=== PATIENT | female | born 1950 | race Caucasian/White ===

== ENCOUNTER 2020-05-01 12:13 | Inpatient (IN) ==
[2020-05-01] MEDS ORDERED: PNEUMOCOCCAL VACCINE (13 VALENT) 0.5 ML SYRINGE IM ONE (17:14)
[2020-05-01] MEDS ORDERED: ONDANSETRON 4 MG/2 ML VIAL IV PRN (17:24)
[2020-05-01] MEDS ORDERED: HYDROmorphone 2 MG/1 ML VIAL IV PRN (17:24)
[2020-05-01] MEDS ORDERED: ACETAMINOPHEN 325 MG TABLET PO PRN (17:24)
[2020-05-01] MEDS: DEXTROSE 5% LACTATED RINGERS 1,000 ML IV SCH (18:05)
[2020-05-01] MEDS: PIPERACILLIN/TAZOBACTAM 3,375 MG in SODIUM CHLORIDE 0.9% 100 ML IV SCH (21:29)
[2020-05-02] MEDS: DEXTROSE 5% LACTATED RINGERS 1,000 ML IV SCH ×3 (00:50→23:35)
[2020-05-02] MEDS: PIPERACILLIN/TAZOBACTAM 3,375 MG in SODIUM CHLORIDE 0.9% 100 ML IV SCH ×3 (04:54→21:12)
[2020-05-02 05:37] LABS: Basophils # 0.1 10*3/uL (0.0-0.2); Basophils % 0.6 % (0.0-0.8); Eosinophils # 0.1 10*3/uL (0.0-0.87); Eosinophils % 1.3 % (0.00-10.9); Hematocrit 34.1 VOL% (35.7-47.0); Hemoglobin 11.2 GM/DL (12.0-16.0); Immature Granulocytes % 0.4 %; Immature Granulocytes Absolute 0.04 #; Lymphocytes # 1.8 10*3/uL (1.4-4.0); Lymphocytes % 18.1 % (21.3-54.2); Mean Corpuscular HGB Conc 32.8 GM/DL (32-36); Mean Corpuscular Volume 91.2 FL (87-102); Mean Platelet Volume 9.3 FL (9.6-12.0); Monocytes % 6.5 % (1.7-12.7); Neutrophils % 73.1 % (38.7-73.9); Platelet Count 420 T/CUMM (130-400); Red Blood Count 3.74 MC/CUMM (3.8-5.5); Red Cell Distribution Width 15.6 % (9.3-17.3)
[2020-05-02 05:58] LABS: Bilirubin,Total 1.1 MG/DL (0.2-1.0); Calcium 8.4 MG/DL (8.5-10.1); Osmolality,Calculated 275.5 MOS/KG (273-304); Total Protein 6.2 G/DL (6.4-8.3)
[2020-05-02] MEDS: POTASSIUM CHLORIDE RIDER 10 MEQ in PREMIX 1 EACH IV PRN ×7 (07:07→23:30)
[2020-05-02] MEDS: LEVOTHYROXINE 88 MCG TABLET PO SCH (07:07)
[2020-05-02] MEDS ORDERED: INDOMETHACIN SUPP 50 MG SUPP RECTAL ONE (08:41)
[2020-05-02] MEDS: PANTOPRAZOLE 40 MG TABLET PO SCH (08:52)
[2020-05-02 09:31] LABS: INR 1.1; PT Patient Result 11.4 SECS (9.8-11.9)
[2020-05-02] MEDS: LACTATED RINGERS 1,000 ML IV SCH (12:36)
[2020-05-02] MEDS ORDERED: SUCCINYLCHOLINE 200 MG/10 ML VIAL ONE (12:45)
[2020-05-02] MEDS ORDERED: propofoL 200 MG/20 ML VIAL IV ONE (12:45)
[2020-05-02] MEDS ORDERED: ROCURONIUM 50 MG/5 ML VIAL IV ONE (12:45)
[2020-05-02] MEDS ORDERED: LIDOCAINE 2% 5 ML VIAL ONE (12:45)
[2020-05-02] MEDS ORDERED: fentaNYL 100 MCG/2 ML VIAL ONE ×2 (12:45→13:26)
[2020-05-02] MEDS ORDERED: ONDANSETRON 4 MG/2 ML VIAL ONE (12:45)
[2020-05-02] MEDS ORDERED: PHENYLEPHRINE 1 MG/10 ML SYRINGE IV ONE (13:13)
[2020-05-02] MEDS ORDERED: GLYCOPYRROLATE 0.4 MG/2 ML VIAL ONE (13:13)
[2020-05-02] MEDS ORDERED: ePHEDrine 50 MG/ML VIAL ONE (14:11)
[2020-05-02] MEDS ORDERED: GLUCAGON 1 MG VIAL ONE (14:54)
[2020-05-02 15:54] LABS: Bilirubin,Urine Negative (Negative); Blood, Urine Negative (Negative); Glucose,Urine (UA) 50 mg/dL (Negative); Hyaline Casts,Urine 1 /LPF (0-3); Ketones,Urine 5 mg/dL (Negative); Mucus,Urine Occasional /LPF (Occasional); Nitrite,Urine Negative (Negative); Protein,Urine Negative; Squamous Epithelial Cell,Urine Occasional /HPF (0-10); Urine Appearance CLEAR (Clear); Urine Color Yellow (Yellow); Urine Urobilinogen < 2.0 EU/DL (0.2-1.0)
[2020-05-02] MEDS ORDERED: ENOXAPARIN 30 MG/0.3 ML SYRINGE SUBCUT ONE (20:00)
[2020-05-02 20:15] LABS: Troponin I 0.138 NG/ML (0.00-0.045)
[2020-05-02] MEDS: CLOPIDOGREL 75 MG TABLET PO SCH (20:44)
[2020-05-03] MEDS: POTASSIUM CHLORIDE RIDER 10 MEQ in PREMIX 1 EACH IV PRN ×5 (00:40→08:28)
[2020-05-03] MEDS: DEXTROSE 5% LACTATED RINGERS 1,000 ML IV SCH ×4 (01:48→19:35)
[2020-05-03 04:39] LABS: Basophils % 0.1 % (0.0-0.8); Eosinophils % 0.1 % (0.00-10.9); Hematocrit 38.9 VOL% (35.7-47.0); Hemoglobin 12.6 GM/DL (12.0-16.0); Immature Granulocytes % 0.4 %; Immature Granulocytes Absolute 0.07 #; Lymphocytes # 1.8 10*3/uL (1.4-4.0); Mean Corpuscular HGB Conc 32.4 GM/DL (32-36); Mean Corpuscular Volume 91.1 FL (87-102); Monocytes % 3.9 % (1.7-12.7); Neutrophils % 84.5 % (38.7-73.9); Platelet Count 462 T/CUMM (130-400); Red Blood Count 4.27 MC/CUMM (3.8-5.5); Red Cell Distribution Width 15.4 % (9.3-17.3); White Blood Count 16.2 T/CUMM (4-12)
[2020-05-03 05:12] LABS: Albumin 2.2 G/DL (3.4-5.0); Calcium 8.5 MG/DL (8.5-10.1); Osmolality,Calculated 273.7 MOS/KG (273-304); Total Protein 6.7 G/DL (6.4-8.3)
[2020-05-03 05:17] LABS: Troponin I 0.058 NG/ML (0.00-0.045)
[2020-05-03] MEDS: PIPERACILLIN/TAZOBACTAM 3,375 MG in SODIUM CHLORIDE 0.9% 100 ML IV SCH ×3 (05:32→21:53)
[2020-05-03] MEDS: LEVOTHYROXINE 88 MCG TABLET PO SCH (05:35)
[2020-05-03] MEDS: PANTOPRAZOLE 40 MG TABLET PO SCH (08:03)
[2020-05-03] MEDS: ENOXAPARIN 30 MG/0.3 ML SYRINGE SUBCUT SCH (08:03)
[2020-05-03] MEDS: CLOPIDOGREL 75 MG TABLET PO SCH (08:03)
[2020-05-03] MEDS: LACTATED RINGERS 1,000 ML IV SCH (13:04)
[2020-05-04] MEDS: LEVOTHYROXINE 88 MCG TABLET PO SCH (05:33)
[2020-05-04] MEDS: DEXTROSE 5% LACTATED RINGERS 1,000 ML IV SCH ×3 (05:35→13:21)
[2020-05-04] MEDS: PIPERACILLIN/TAZOBACTAM 3,375 MG in SODIUM CHLORIDE 0.9% 100 ML IV SCH ×2 (05:36→13:21)
[2020-05-04] MEDS: PANTOPRAZOLE 40 MG TABLET PO SCH (09:10)
[2020-05-04] MEDS: ENOXAPARIN 30 MG/0.3 ML SYRINGE SUBCUT SCH (09:10)
[2020-05-04] MEDS: CLOPIDOGREL 75 MG TABLET PO SCH (09:10)
[2020-05-04] MEDS: LACTATED RINGERS 1,000 ML IV SCH (09:11)
[2020-05-04] MEDS ORDERED: POTASSIUM CHLORIDE 20 MEQ TABLET PO ONE (09:43)
[2020-05-04 16:03] VITALS: BP 144/68
[2020-05-05] MEDS ORDERED: ATORVASTATIN 10 MG TABLET PO SCH (09:00)
== END 2020-05-04 19:44 | disposition home or self-care (01) | DRG 919 ==
LOC: N.TELEN 16:33 → INTOOBSV 16:33 → N.ICU 05-02 14:42 → N.TELES 05-04 01:52
PROVIDERS: ADMIT Student in an Organized Health Care Education/Training Program; ATTEND Student in an Organized Health Care Education/Training Program